=== PATIENT | male | born 1960 ===

== ENCOUNTER 2018-11-01 21:01 | Emergency (ER) | payer SELFPAY ==
--- NOTE | 2018-11-01 21:32 | PHYS DOC ---
Past History Past Medical History: Hypertension, Other Additional Past Medical Histor: cellulitis, ARVIND Past Surgical History: Appendectomy, Other Additional Past Surgical Histo: left facial reconstruction, hardware still in place Alcohol Use: Occasionally Drug Use: Cocaine, Marijuana Social History Narrative: " crack cocaine" last used 48 hours ago Adult General Chief Complaint Chief Complaint: HEADACHE HPI HPI Patient is a 58-year-old -Citizen Of [place] male, who presents to the emergency department via EMS, after being diverted from the [place]. He states he has had chronic, recurrent headaches on the left side of his head,, Secondary to left facial and head trauma about 20 years ago. He states that he normally can take Tylenol, but did not have any Tylenol and hand today, and his headache gradually got bed, and it is slightly worsened his chronic recurrent headache, although he feels it is a variation of the same type of headache. He denies any numbness, weakness, or new vision changes. He has not had any vomiting, neck pain, fevers, chills, chest pain or shortness of breath. There are no alleviating, or exacerbating factors to his symptoms. Review of Systems Review of Systems Constitutional: Denies fever or chills [] Eyes: Denies change in visual acuity, redness, or eye pain [] HENT: Denies nasal congestion or sore throat [] Respiratory: Denies cough or shortness of breath [] Cardiovascular: No additional information not addressed in HPI [] GI: Denies abdominal pain, nausea, vomiting, bloody stools or diarrhea [] : Denies dysuria or hematuria [] Musculoskeletal: Denies back pain or joint pain [] Integument: Denies rash or skin lesions [] Neurologic: Denies mental status changes, focal weakness or sensory changes [] Endocrine: Denies polyuria or polydipsia [] All other systems were reviewed and found to be within normal limits, except as documented in this note. Allergies Allergies Allergies Coded Allergies Type Severity Reaction Last Updated Verified No Known Drug Allergies 11/01/18 No Physical Exam Physical Exam PHYSICAL EXAM: CONSTITUTIONAL: Well developed, well nourished HEAD: normocephalic, atraumatic. There is no reproducible tenderness to palpation. EENT: PERRL, EOMI. Conjunctivae normal color, there is no photophobia on exam, sclerae non-icteric; moist mucous membranes. NECK: Supple, non-tender; no meningismus. LUNGS: Lungs CTA, breathing even and unlabored. Normal air movement. HEART: Regular rate and rhythm, no murmur CHEST: No deformity; non-tender ABDOMEN: The abdomen is soft, and non-tender, no masses or bruits. EXTREM: Normal ROM; no deformity, no calf tenderness. Normal pulses palpable in all extremities. There is no pedal edema. SKIN: No rash; no diaphoresis NEURO: Alert; normal speech and cognition; CN's grossly intact; strength grossly intact without focal deficit. BACK: No CVA TTP. Current Patient Data Vital Signs Vital Signs Date Time Temp Pulse Resp B/P (MAP) Pulse Ox O2 Delivery O2 Flow Rate FiO2 11/01/18 21:10 98.4 98 16 98 Room Air EKG EKG [] Radiology/Procedures Radiology/Procedures [PROCEDURE: CT HEAD WO CONTRAST Exam: CT head INDICATION: Headache TECHNIQUE: Sequential axial images through the head were obtained without the administration of IV contrast. Comparisons: None FINDINGS: No focal parenchymal lesion or hemorrhage is identified. There is no midline shift or sulcal effacement. No acute vascular territory infarction is identified. Olivier-white distinction is preserved. The ventricular system is within normal limits without compression hydrocephalus. The basal cisterns are well maintained. The visualized portions of the paranasal sinuses and mastoid air cells are well-pneumatized. No acute fractures. IMPRESSION: No acute intracranial abnormality. ] Course & Med Decision Making Course & Med Decision Making Pertinent Imaging studies reviewed. (See chart for details) []10:25 PM:Patient remains stable. His headache has resolved. He is feeling much better, back to baseline, ready to go home. I discussed test results, the need for close follow-up, and return precautions. Dragon Disclaimer Dragon Disclaimer This electronic medical record was generated, in whole or in part, using a voice recognition dictation system. Departure Departure: Impression: Primary Impression: Chronic headache Disposition: 01 HOME, SELF-CARE Condition: STABLE Patient Instructions: General Headache Without Cause Additional Instructions: Tylenol as needed for pain. Follow-up with your primary care provider for further evaluation. MIKE MARIE MD Nov 01, 2018 21:32
[2018-11-01] MEDS ORDERED: ACETAMINOPHEN 500 MG TABLET PO ONE (21:45)
[2018-11-01 21:47] VITALS: BP 147/85
--- NOTE | 2018-11-01 22:10 | RAD ---
Exam: CT head INDICATION: Headache TECHNIQUE: Sequential axial images through the head were obtained without the administration of IV contrast. Comparisons: None FINDINGS: No focal parenchymal lesion or hemorrhage is identified. There is no midline shift or sulcal effacement. No acute vascular territory infarction is identified. Olivier-white distinction is preserved. The ventricular system is within normal limits without compression hydrocephalus. The basal cisterns are well maintained. The visualized portions of the paranasal sinuses and mastoid air cells are well-pneumatized. No acute fractures. IMPRESSION: No acute intracranial abnormality. Exposure: One or more of the following in the visualized dose reduction techniques were utilized for this examination: 1. Automated exposure control 2. Adjustment of the MA and/or KV according to patient size Use of iterative of reconstructive technique Electronically signed by: Tyra Olivia MD (11/01/2018 10:07 PM) [id number]
[2018-11-01] MEDS ORDERED: TETRACAINE 0.5% OPHTH SOLUTION 4ML BOTTLE. OS ONE (22:30)
== END 2018-11-01 22:36 | disposition home or self-care (01) ==
LOC: ER 21:01
DX: R51 Headache (principal); G89.29 Other chronic pain; I10 Essential (primary) hypertension; G47.33 Obstructive sleep apnea (adult) (pediatric)
CPT/HCPCS: 70450; 99284-25